=== PATIENT | female | born 1980 | race Caucasian/White ===

== ENCOUNTER 2024-11-25 15:07 | Emergency (ER) | payer OTHER, SELFPAY ==
[2024-11-25 15:15] VITALS: BP 184/59; PULSE 35; TEMP 36.5; O2SAT 99; BMI 41.5
--- NOTE | 2024-11-25 15:19 | ECG_ITS ---
"[employer] Test Date: 2024-11-25 Pat Name: Diana Kasper Department: Room: Gender: Female Import Clerk: : 1980 Requested By: Christine Valdez Order Number: [id number] Taqueria MD: Daysi Roe M.D. Measurements Intervals [place] Rate: P: 0 ND: 0 QRS: 0 QRSD: 0 T: 0 QT: 0 QTc: 0 Interpretive Statements Third-degree heart block with possible junctional bradycardia NONSPECIFIC INTRAVENTRICULAR CONDUCTION DELAY WARNING: DATA QUALITY MAY AFFECT INTERPRETATION INTERPRETATION BASED ON A DEFAULT AGE OF 40 YEARS No previous ECG available for comparison Electronically Signed On 11-25-2024 15:31:50 CDT by Daysi Roe M.D. [id number]"
--- NOTE | 2024-11-25 15:31 | ED_ITS ---
HPI - Arrhythmia/Palpitations 2 General: Chief Complaint: Arrhythmia/Palpitations Stated Complaint: passed out a couple of hour ago Time Seen by Provider: 11/25/24 15:26 History of Present Illness: 44-year-old female with history of obesi ty but no other known medical problems who presents emergency room after she had a syncopal episode. On presentation here she is now asymptomatic. Her blood pressure is elevated. Since the syncopal episode she has not had any symptoms. No chest pain. No lightheadedness. No altered mental status. No nausea or vomiting. Related Data Allergies Allergy/AdvReac Type Severity Reaction Status Date / Time No Known Allergies Allergy Verified 11/25/24 15:25 Review of Systems 2 Narrative: Constitutional symptoms: Negative except as documented in HPI. Skin symptoms: Negative except as documented in HPI. Eye symptoms: Negative except as documented in HPI. ENMT symptoms: Negative except as documented in HPI. Respiratory symptoms: Negative except as documented in HPI. Cardiovascular symptoms: Negative except as documented in HPI. Gastrointestinal symptoms: Negative except as documented in HPI. Genitourinary symptoms: Negative except as documented in HPI. Musculoskeletal symptoms: Negative except as documented in HPI. Neurologic symptoms: Negative except as documented in HPI. Psychiatric symptoms: Negative except as documented in HPI. Endocrine symptoms: Negative except as documented in HPI. Physical Exam 2 Narrative: EXAM NARRATIVE: General: Alert, no acute distress. Skin: Warm, dry. Head: Normocephalic, atraumatic. Neck: Supple, trachea midline. Eye: Extraocular movements are intact. Ears, nose, mouth and throat: mucosa moist. Cardiovascular: Regular, Normal peripheral perfusion. Respiratory: Lungs are clear to auscultation, respirations are non-labored, breath sounds are equal, Symmetrical chest wall expansion. Gastrointestinal: Soft, Nontender, Non distended Musculoskeletal: Normal ROM, no deformity. Neurological: Alert and oriented, No focal neurological deficit observed. Psychiatric: Cooperative, appropriate mood & affect. Course 2 Vital Signs: Vital signs: Vital Signs Temperature 97.7 F 11/25/24 15:15 Pulse Rate 32 L 11/25/24 16:19 Respiratory Rate 16 11/25/24 16:19 Blood Pressure 129/62 11/25/24 16:19 Pulse Oximetry 97 11/25/24 16:19 Oxygen Delivery Me thod Room Air 11/25/24 16:19 MDM - Arrhythmia/Palpitations Medical Decision Making Medical decision making: Differential diagnosis including but not limited to and based on the above HPI, review of systems and physical exam in this patient with syncope: Vasovagal, orthostatics hypotension, cardiac dysrhythmia, myocardial infarction, infection and hypotension, Orders placed to evaluate differential diagnosis based on the above differential, HPI and physical exam EKG: Patient appears to be in a normal heart block with a rate of around 34. No ST elevation this was reviewed and interpreted by myself the ER physician Consultation: I spoke with Dr. Roe. He recommends transfer. He reviewed the EKG. Since patient is asymptomatic he recommends placing pacer pads but does not feel she needs to go to the [facility] for temporary pacer at this point Lab Review: Laboratory results were reviewed and interpreted by myself the emergency room physician. No leukocytosis. No anemia. No renal failure. TSH is normal. proBNP is 156. Magnesium is normal. Initial troponin is negative. I reviewed the patient's medical record. Reexamination: Patient remained stable. No increased work of breathing. No altered mental status. No focal motor deficits. Patient has remained asymptomatic and bradycardic with blood pressures ranging from 130-180 systolic. Consultation: Spoke with transfer center at [facility] and the patient was accepted by Dr. Ruelas ER to ER at [facility] in [place] Assessment and plan: Complete heart block -I discussed the patient with the accepting physician on-call. - Discussed findings and plan with patient. Answered any questions. - All laboratory values were reviewed and interpreted personally by myself, the ER physician - All imaging was reviewed and interpreted personally by myself, the ER physician. - Evaluation and treatment of this problem were appropriate in the emergency setting Lab Data 11/25/24 15:25 11/25/24 15:25 Laboratory Results WBC 8.94 10^3/uL (3.29-11.43) 11/25/24 15:25 RBC 4.85 10^6/uL (3.85-5.65) 11/25/24 15:25 Hgb 13.50 g/dL (11.27-16.99) 11/25/24 15:25 Hct 42.2 % (36-47) 11/25/24 15:25 MCV 87.0 fl (85-98) 11/25/24 15:25 MCH 27.8 pg (27-33) 11/25/24 15:25 MCHC 32.0 g/dL (30-55) 11/25/24 15:25 RDW 13.6 % (12.1-15.1) 11/25/24 15:25 Plt Count 324 10^3/cmm (157-399) 11/25/24 15:25 MPV 11.2 fL (7.4-10.4) H 11/25/24 15:25 Neut % (Auto) 70.6 % 11/25/24 15:25 Lymph % (Auto) 20.0 % 11/25/24 15:25 Dawes % (Auto) 7.5 % 11/25/24 15:25 Eos % (Auto) 1.1 % 11/25/24 15: Baso % (Auto) 0.6 % 11/25/24 15: Neut # (Auto) 6.31 10^3/uL (1.8-7.7) 11/25/24 15:25 Lymph # (Auto) 1.8 10^3/uL (0.8-4.8) 11/25/24 15:25 Dawes # (Auto) 0.7 10^3/uL (0.2-0.9) 11/25/24 15:25 Eos # (Auto) 0.1 10^3/uL (0.0-0.8) 11/25/24 15:25 Baso # (Auto) 0.1 10^3/uL (0.0-0.1) 11/25/24 15:25 Nucleated RBC % (auto) 0 % 11/25/24 15:25 Nucleated RBCs # 0.0 /100WBC 11/25/24 15:25 Sodium 140 mmol/L (136-145) 11/25/24 15:25 Potassium 4.3 mmol/L (3.5-5.1) 11/25/24 15:25 Chloride 104 mmol/L (98-107) 11/25/24 15:25 Carbon Dioxide 19 mmol/L (22-29) L 11/25/24 15:25 Anion Gap 21.3 (5-19) H 11/25/24 15:25 BUN 22 mg/dL (6-20) H 11/25/24 15:25 Creatinine 0.8 mg/dL (0.5-0.9) 11/25/24 15:25 GFR Calculation 77.6 mL/min (90-130) L 11/25/24 15:25 Glucose 133 mg/dL (65-115) H 11/25/24 15:25 Calculated Osmolality 295 mOsm/kg (285-295) 11/25/24 15:25 Lactic Acid 1.3 mmol/L (0.5-2.2) 11/25/24 15:25 Calcium 9.8 mg/dL (8.5-10.5) 11/25/24 15:25 Magnesium 2.1 mg/dL (1.7-2.3) 11/25/24 15:25 Total Bilirubin 0.3 mg/dL (0.15-1.2) 11/25/24 15:25 AST 24 U/L (0-32) 11/25/24 15:25 ALT 22 U/L (0-33) 11/25/24 15:25 Alkaline Phosphatase 86 U/L (35-105) 11/25/24 15:25 Troponin T Baseline < 6 ng/L (0-10) 11/25/24 15:25 NT-Pro-B Natriuret Pep 153 pg/mL (0-125) H 11/25/24 15:25 Total Protein 7.6 g/dL (6.6-8.7) 11/25/24 15:25 Albumin 4.5 g/dL (3.5-5.2) 11/25/24 15:25 Globulin 3.1 g/dL (1.3-4.6) 11/25/24 15:25 TSH 0.62 uIU/mL (0.27-4.20) 11/25/24 15:25 No radiology studies performed this visit Discharge Plan Discharge Patient Disposition: Xfer Short-Term Hosp Clinical Impression: Complete heart block, Syncope, Hypertension Condition: Stable Discharge Diet: Usual diet Discharge Activity: Limit activity as instructed Patient Instructions: Splint Care (ED) Activity Restrictions/Additional Instructions: Thank you for choosing [facility] for your healthcare needs today. You have been screened and evaluated and felt safe for discharge. Health conditions do change or evolve sometimes and as such it is important that you follow up with your Primary Doctor to be re checked, 3-5 days is a general good time frame for follow up. You are always welcome to return to the ED for re assessment if your symptoms are worsening or you have new concerns Print Language: New Zealander Coding Level of Care Code ED Pharmaceutical Service Representative for Lorenza Law
[2024-11-25 15:38] LABS: Hematocrit 42.2 % (36-47); Hemoglobin 13.50 g/dL (11.27-16.99); Mean Corpuscular HGB Conc 32.0 g/dL (30-55); Mean Corpuscular Hemoglobin 27.8 pg (27-33); Mean Corpuscular Volume 87.0 fl (85-98); Nucleated Red Blood Cells % 0 %; Platelet Count 324 10^3/cmm (157-399); Red Blood Count 4.85 10^6/uL (3.85-5.65); White Blood Count 8.94 10^3/uL (3.29-11.43)
[2024-11-25 15:57] LABS: Lactic Sepsis W/Reflex 1.3 mmol/L (0.5-2.2)
[2024-11-25 16:00] LABS: Troponin(5th) Baseline < 6 ng/L (0-10)
[2024-11-25 16:07] LABS: Alanine Aminotransferase 22 U/L (0-33); Albumin Level 4.5 g/dL (3.5-5.2); Alkaline Phosphatase 86 U/L (35-105); Anion Gap 21.3 (5-19); Aspartate Amino Transferase 24 U/L (0-32); Blood Urea Nitrogen 22 mg/dL (6-20); Calcium 9.8 mg/dL (8.5-10.5); Carbon Dioxide 19 mmol/L (22-29); Chloride 104 mmol/L (98-107); Creatinine Clr Calc Pharmacy 111.5348; Globulin 3.1 g/dL (1.3-4.6); Glucose 133 mg/dL (65-115); Magnesium 2.1 mg/dL (1.7-2.3); NT Pro B Type Natriuretic Pept 153 pg/mL (0-125); Osmolality Calculated 295 mOsm/kg (285-295); Potassium 4.3 mmol/L (3.5-5.1); Sodium 140 mmol/L (136-145); Thyroid Stimulating Hormone 0.62 uIU/mL (0.27-4.20); Total Protein 7.6 g/dL (6.6-8.7)
[2024-11-25 16:15] LABS: Slide Review Slide Review Perform
[2024-11-25 16:19] VITALS: BP 129/62; PULSE 32; RESP 16; O2SAT 97
--- NOTE | 2024-11-25 17:16 | ECG_ITS ---
[facility] Date: 2024-11-25 Pat Name: Diana Kasper Department: Room: Gender: Female Satellite Tv Technician: : 1980 Requested By: Christine Valdez Order Number: [id number] Meng MD: Daysi Roe M.D. Measurements Intervals [place] Rate: 32 P: 0 CA: 0 QRS: -40 QRSD: 145 T: -59 QT: 596 QTc: 441 Interpretive Statements IDIOVENTRICULAR RHYTHM Third-degree heart block PROLONGED QT INTERVAL CRITICAL TEST RESULT INTERPRETATION BASED ON A DEFAULT AGE OF 40 YEARS Compared to ECG 11/25/2024 15:19:44 Idioventricular rhythm now present Prolonged QT interval now present Intraventricular conduction delay no longer present Electronically Signed On 11-25-2024 19:36:20 CDT by Daysi Roe M.D. [id number]
[2024-11-25 17:18] VITALS: BP 129/52; PULSE 30; O2SAT 98
[2024-11-25 17:32] LABS: Troponin 5 2HR 9.68 ng/L (0-10); Troponin 5 2HR Delta 3.68001 ABS# (0-10)
--- OUTSIDE RECORDS SUMMARY | 2024-11-25 17:54 | XMS_ITS | Encounter Summary ---
Author Organization [facility] Address [address] [place] [address] Care Team Providers Care Telecommunications Field Technician Name Role Phone Paulino Fofana MD Primary Care Provider [phone] Encounter Details Date Type Department Care Team (Latest Contact Info) Description 04/11/2002 Outpatient Historical [facility] Medicine[address] [phone] Jimmy Sheldon MD [address] [address] CARPAL TUNNEL SYNDROME (Primary Dx) Social History Tobacco Use Types Packs/Day Years Used Date Smoking Tobacco: Never Assessed Comments Unknown Sex and Gender Information Value Date Recorded Sex Assigned at Not on file Legal Sex Female 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 Gender Identity Not on file Sexual Orientation Not on file documented as of this encounter Plan of Treatment Not on file documented as of this encounter Visit Diagnoses Diagnosis Carpal tunnel syndrome- Primary documented in this encounter Additional Health Concerns Infection Onset Date Last Indicated Resolved Time R/O COVID-19 10/16/2019 10/16/2019 10/22/2020 9:18 PM CDT documented as of this encounter Care Teams Telecommunications Field Technician Relationship Specialty Start Date End Date Paulino Fofana MD [address] [phone] PCP - General Family Practice 08/07/18 documented as of this encounter
--- OUTSIDE RECORDS SUMMARY | 2024-11-25 17:54 | XMS_ITS | Encounter Summary ---
Author Organization [facility] Address [address] [place] [address] Care Team Providers Care Education Specialist Name Role Phone Paulino Fofana MD Primary Care Provider [phone] Encounter Details Date Type Department Care Team (Latest Contact Info) Description 07/30/2000 Outpatient Historical [facility] Medicine[address] [phone] Jimmy Sheldon MD [address] [address] Dysthymic disorder (Primary Dx) Social History Tobacco Use Types Packs/Day Years Used Date Smoking Tobacco: Never Assessed Comments Unknown Sex and Gender Information Value Date Recorded Sex Assigned at Not on file 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 Gender Identity Not on file Sexual Orientation Not on file documented as of this encounter Plan of Treatment Not on file documented as of this encounter Visit Diagnoses Diagnosis Dysthymic disorder- Primary documented in this encounter Additional Health Concerns Infection Onset Date Last Indicated Resolved Time R/O COVID-19 10/16/2019 10/16/2019 10/22/2020 9:18 PM CDT documented as of this encounter Care Teams Education Specialist Relationship Specialty Start Date End Date Paulino Fofana MD [address], [place] [id number] PCP - General Family Practice 08/07/18 documented as of this encounter
--- OUTSIDE RECORDS SUMMARY | 2024-11-25 17:54 | XMS_ITS | Encounter Summary ---
Author Organization [facility] Address [address] [place] [address] Care Team Providers Care Adhesive Bonding Machine Operator Name Role Phone Paulino Fofana MD Primary Care Provider [phone] Encounter Details Date Type Department Care Team (Latest Contact Info) Description 04/20/2000 Outpatient Historical [facility] Medicine[address] [phone] Jimmy Sheldon MD [address] [address] Dysthymic disorder (Primary Dx) Social History Tobacco Use Types Packs/Day Years Used Date Smoking Tobacco: Never Assessed Comments Unknown Sex and Gender Information Value Date Recorded Sex Assigned at Not on file Legal 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 Gender Identity Not on file Sexual Orientation Not on file documented as of this encounter Plan of Treatment Not on file documented as of this encounter Visit Diagnoses Diagnosis Dysthymic disorder- Primary documented in this encounter Additional Health Concerns Infection Onset Date Last Indicated Resolved Time R/O COVID-19 10/16/2019 10/16/2019 10/22/2020 9:18 PM CDT documented as of this encounter Care Teams Adhesive Bonding Machine Operator Relationship Specialty Start Date End Date Paulino Fofana MD [address] [phone] PCP - General Family Practice 08/07/18 documented as of this encounter
--- OUTSIDE RECORDS SUMMARY | 2024-11-25 17:54 | XMS_ITS | Encounter Summary ---
Author Organization [facility] Address [address] [place] [address] Care Team Providers Care Toll Line Mechanic Name Role Phone Paulino Fofana MD Primary Care Provider Encounter Details Date Type Department Care Team (Latest Contact Info) Description 06/06/2002 Outpatient Historical [facility] Medicine[address] [phone] Jimmy Sheldon MD [address] [address] JOINT PAIN-FOREARM (Primary Dx); GANGLION NOS Social History Tobacco Use Types Packs/Day Years Used Date Smoking Tobacco: Never Assessed Comments Unknown Sex and Gender Information Value Date Recorded Sex Assigned at Not on file 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 Gender Identity Not on file Sexual Orientation Not on file documented as of this encounter Plan of Treatment Not on file documented as of this encounter Visit Diagnoses Diagnosis Pain in joint, forearm- Primary Ganglion, unspecified documented in this encounter Additional Health Concerns Infection Onset Date Last Indicated Resolved Time R/O COVID-19 10/16/2019 10/16/2019 10/22/2020 9:18 PM CDT documented as of this encounter Care Teams Toll Line Mechanic Relationship Specialty Start Date End Date Paulino Fofana MD [address], [place] [address] PCP - General Family Practice 08/07/18 documented as of this encounter
--- OUTSIDE RECORDS SUMMARY | 2024-11-25 17:54 | XMS_ITS | Encounter Summary ---
Author Organization [facility] Address [address] [place] [address] Care Team Providers Care Cripple Cutter Name Role Phone Paulino Fofana MD Primary Care Provider [phone] Encounter Details Date Type Department Care Team (Latest Contact Info) Description 12/22/1999 Outpatient Historical [facility] PANTRY STEWARD/STEWARDESS Dao Ocampo MD [address] [place] [address] Supervision of other normal (Primary Dx) Social History Tobacco Use Types Packs/Day Years Used Date Smoking Tobacco: Never Assessed Comments Unknown Sex and Gender Information Value Date Recorded Sex Assigned at Not on file 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 Gender Identity Not on file Sexual Orientation Not on file documented as of this encounter Plan of Treatment Not on file documented as of this encounter Visit Diagnoses Diagnosis Supervision of other normal - Primary documented in this encounter Additional Health Concerns Infection Onset Date Last Indicated Resolved Time R/O COVID-19 10/16/2019 10/16/2019 10/22/2020 9:18 PM CDT documented as of this encounter Care Teams Cripple Cutter Relationship Specialty Start Date End Date Paulino Fofana MD [address] [place] [address] PCP - General Family Practice 08/07/18 documented as of this encounter
--- OUTSIDE RECORDS SUMMARY | 2024-11-25 17:54 | XMS_ITS | Encounter Summary ---
Author Organization [facility] Address [address] Gates: [place] [address] Care Team Providers Care Unpaid Intern Name Role Phone Paulino Fofana MD Primary Care Provider [phone] Encounter Details Date Type Department Care Team (Late st Contact Info) Description 09/03/2001 Outpatient Historical [facility]ia [facility], [facility] [address], 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
--- OUTSIDE RECORDS SUMMARY | 2024-11-25 17:54 | XMS_ITS | Encounter Summary ---
Author Organization [facility] Address [address] [place] [address] Care Team Providers Care Process Improvement Specialist Name Role Phone Paulino Fofana MD Primary Care Provider [phone] Encounter Details Date Type Department Care Team (Latest Contact Info) Description 06/15/2000 Outpatient Historical [facility] Medicine[address] [phone] Jimmy Sheldon MD [address] [address] Routine medical exam (Primary Dx) Social History Tobacco Use Types Packs/Day Years Used Date Smoking Tobacco: Never Assessed Comments Unknown Sex and Gender Information Value Date Recorded Sex Assigned at Not on file Legal 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 Gender Identity Not on file Sexual Orientation Not on file documented as of this encounter Plan of Treatment Not on file documented as of this encounter Visit Diagnoses Diagnosis Routine medical exam- Primary Routine general medical examination at a health care facility documented in this encounter Additional Health Concerns Infection Onset Date Last Indicated Resolved Time R/O COVID-19 10/16/2019 10/16/2019 10/22/2020 9:18 PM CDT documented as of this encounter Care Teams Process Improvement Specialist Relationship Specialty Start Date End Date Paulino Fofana MD [address], [place] [address] PCP - General Family Practice 08/07/18 documented as of this encounter
--- OUTSIDE RECORDS SUMMARY | 2024-11-25 17:54 | XMS_ITS | Encounter Summary ---
Author Organization [facility] Address [address] [place] [address] Care Team Providers Care Record Changer Tester Name Role Phone Paulino Fofana MD Primary Care Provider [phone] Encounter Details Date Type Department Care Team (Latest Contact Info) Description 06/12/2001 Outpatient [facility] Medicine[address] [phone] Jimmy Sheldon MD [address] [address] Gynecologic examination (Primary Dx); PRESCRIP-ORAL CONTRACEPT Social History Tobacco Use Types Packs/Day Years Used Date Smoking Tobacco: Never Assessed Comments Unknown Sex and Gender Information Value Date Recorded Sex Assigned at Not on file Legal Sex Female 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 Gender Identity Not on file Sexual Orientation Not on file documented as of this encounter Plan of Treatment Not on file documented as of this encounter Visit Diagnoses Diagnosis Gynecologic examination- Primary Gynecological examination General counseling for prescription of oral contraceptives documented in this encounter Additional Health Concerns Infection Onset Date Last Indicated Resolved Time R/O COVID-19 10/16/2019 10/16/2019 10/22/2020 9:18 PM CDT documented as of this encounter Care Teams Record Changer Tester Relationship Specialty Start Date End Date Paulino Fofana MD [address] [place] [address] PCP - General Family Practice 08/07/18 documented as of this encounter
--- OUTSIDE RECORDS SUMMARY | 2024-11-25 17:54 | XMS_ITS | Encounter Summary ---
Author Organization [facility] Address [address] [place] [address] Care Team Providers Care Form Press Operator Name Role Phone Paulino Fofana MD Primary Care Provider [phone] Encounter Details Date Type Department Care Team (Latest Contact Info) Description 05/16/2000 Outpatient Historical [facility] Medicine- [address] [phone] Jimmy Sheldon MD [address] [address] Routine medical exam (Primary Dx); Need for prophylactic vaccination and inoculation against other specified disease; Tuberculosis contact; Need for prophylactic vaccination with tetanus toxoid alone Social History Tobacco Use Types Packs/Day Years Used Date Smoking Tobacco: Never Assessed Comments Unknown Sex and Gender Information Value Date Recorded Sex Assigned at Not on file 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 Gender Identity Not on file Sexual Orientation Not on file documented as of this encounter Plan of Treatment Not on file documented as of this encounter Visit Diagnoses Diagnosis Routine medical exam- Primary Routine general medical examination at a health care facility Need for prophylactic vaccination and inoculation against other specified disease Tuberculosis contact Contact with or exposure to tuberculosis Need for prophylactic vaccination with tetanus toxoid alone documented in this encounter Additional Health Concerns Infection Onset Date Last Indicated Resolved Time R/O COVID-19 10/16/2019 10/16/2019 10/22/2020 9:18 PM CDT documented as of this encounter Care Teams Form Press Operator Relationship Specialty Start Date End Date Paulino Fofana MD [address] [place] [address] PCP - General Family Practice 08/07/18 documented as of this encounter
--- OUTSIDE RECORDS SUMMARY | 2024-11-25 17:54 | XMS_ITS | Encounter Summary ---
Author Organization [facility] Address [address] [place] [address] Care Team Providers Care Hooker Operator Name Role Phone Paulino Fofana MD Primary Care Provider [phone] Encounter Details Date Type Department Care Team (Latest Contact Info) Description 03/08/2000 Outpatient Historical [facility] AUDIO PRODUCTION ENGINEER Dao Ocampo MD [address] [place] [address] Gynecologic examination (Primary Dx) Social History Tobacco Use Types Packs/Day Years Used Date Smoking Tobacco: Never Assessed Comments Unknown Sex and Gender Information Value Date Recorded Sex Assigned at Not on file Legal 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 Female 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 Gender Identity Not on file Sexual Orientation Not on file documented as of this encounter Plan of Treatment Not on file documented as of this encounter Visit Diagnoses Diagnosis Gynecologic examination- Primary Gynecological examination documented in this encounter Additional Health Concerns Infection Onset Date Last Indicated Resolved Time R/O COVID-19 10/16/2019 10/16/2019 10/22/2020 9:18 PM CDT documented as of this encounter Care Teams Hooker Operator Relationship Specialty Start Date End Date Paulino Fofana MD [address] [place] [address] PCP - General Family Practice 08/07/18 documented as of this encounter
--- OUTSIDE RECORDS SUMMARY | 2024-11-25 17:54 | XMS_ITS | Encounter Summary ---
Author Organization [facility] Address [address] [place] [address] Care Team Providers Care Office Manager Receptionist Name Role Phone Paulino Fofana MD Primary Care Provider [phone] Encounter Details Date Type Department Care Team (Latest Contact Info) Description 06/22/2000 Outpatient Historical [facility] Medicine[address] [phone] Jimmy Sheldon MD [address] [address] Dysthymic disorder (Primary Dx) Social History Tobacco Use Types Packs/Day Years Used Date Smoking Tobacco: Never Assessed Comments Unknown Sex and Gender Information Value Date Recorded Sex Assigned at Not on file Legal Sex Female 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 ASSOCIATE ENGINEER Gender Identity Not on file Sexual Orientation Not on file documented as of this encounter Plan of Treatment Not on file documented as of this encounter Visit Diagnoses Diagnosis Dysthymic disorder- Primary documented in this encounter Additional Health Concerns Infection Onset Date Last Indicated Resolved Time R/O COVID-19 10/16/2019 10/16/2019 10/22/2020 9:18 PM CDT documented as of this encounter Care Teams Office Manager Receptionist Relationship Specialty Start Date End Date Paulino Fofana MD [address] [phone] PCP - General Family Practice 08/07/18 documented as of this encounter
--- OUTSIDE RECORDS SUMMARY | 2024-11-25 17:54 | XMS_ITS | Encounter Summary ---
Author Organization [facility] Address [address] [place] [address] Care Team Providers Care Tool Straightener Name Role Phone Paulino Fofana MD Primary Care Provider [phone] Encounter Details Date Type Department Care Team (Latest Contact Info) Description 04/06/2000 Outpatient Historical [facility] Medicine[address] [phone] Jimmy Sheldon MD [address] [address] Spasm of muscle (Primary Dx); Dysthymic disorder Social History Tobacco Use Types Packs/Day Years Used Date Smoking Tobacco: Never Assessed Comments Unknown Sex and Gender Information Value Date Recorded Sex Assigned at Not on file Legal Sex Female 5:14 AM SENIOR MANAGER ASSET PROTECTION Gender Identity Not on file Sexual Orientation Not on file documented as of this encounter Plan of Treatment Not on file documented as of this encounter Visit Diagnoses Diagnosis Spasm of muscle- Primary Dysthymic disorder documented in this encounter Additional Health Concerns Infection Onset Date Last Indicated Resolved Time R/O COVID-19 10/16/2019 10/16/2019 10/22/2020 9:18 PM CDT documented as of this encounter Care Teams Tool Straightener Relationship Specialty Start Date End Date Paulino Fofana MD [address], [place] [address] PCP - General Family Practice 08/07/18 documented as of this encounter
--- OUTSIDE RECORDS SUMMARY | 2024-11-25 17:54 | XMS_ITS | Encounter Summary ---
Author Organization [facility] Address [address] [place] [address] Care Team Providers Care Visiting Teacher Name Role Phone Paulino Fofana MD Primary Care Provider [phone] Encounter Details Date Type Department Care Team (Latest Contact Info) Description 02/13/2001 Outpatient Historical [facility] Medicine[address] [address] Jimmy Sheldon MD [address] [address] PRESCRIP-ORAL CONTRACEPT (Primary Dx); NEUROTIC DEPRESSION Social History Tobacco Use Types Packs/Day Years Used Date Smoking Tobacco: Never Assessed Comments Unknown Sex and Gender Information Value Date Recorded Sex Assigned at Not on file Legal Sex Female 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 Gender Identity Not on file Sexual Orientation Not on file documented as of this encounter Plan of Treatment Not on file documented as of this encounter Visit Diagnoses Diagnosis General counseling for prescription of oral contraceptives- Primary Dysthymic disorder documented in this encounter Additional Health Concerns Infection Onset Date Last Indicated Resolved Time R/O COVID-19 10/16/2019 10/16/2019 10/22/2020 9:18 PM CDT documented as of this encounter Care Teams Visiting Teacher Relationship Specialty Start Date End Date Paulino Fofana MD [address] [place] [phone] PCP - General Family Practice 08/07/18 documented as of this encounter
--- OUTSIDE RECORDS SUMMARY | 2024-11-25 17:54 | XMS_ITS | Encounter Summary ---
Author Organization [facility] Address [address] [place] [address] Care Team Providers Care Relief Map Modeler Name Role Phone Paulino Fofana MD Primary Care Provider [phone] Encounter Details Date Type Department Care Team (Latest Contact Info) Description 09/27/2001 Outpatient Historical [facility] Medicine[address] [phone] Jimmy Sheldon MD [address] [address] VIRAL WARTS NOS (Primary Dx) Social History Tobacco Use Types Packs/Day Years Used Date Smoking Tobacco: Never Assessed Comments Unknown Sex and Gender Information Value Date Recorded Sex Assigned at Not on file Legal Sex Female 5:14 AM OYSTER WASHER Gender Identity Not on file Sexual Orientation Not on file documented as of this encounter Plan of Treatment Not on file documented as of this encounter Visit Diagnoses Diagnosis Viral warts, unspecified- Primary documented in this encounter Additional Health Concerns Infection Onset Date Last Indicated Resolved Time R/O COVID-19 10/16/2019 10/16/2019 10/22/2020 9:18 PM CDT documented as of this encounter Care Teams Relief Map Modeler Relationship Specialty Start Date End Date Paulino Fofana MD [address] [phone] PCP - General Family Practice 08/07/18 documented as of this encounter
--- OUTSIDE RECORDS SUMMARY | 2024-11-25 17:54 | XMS_ITS | Encounter Summary ---
Author Organization [facility] Address [address] [place] [address] Care Team Providers Care Drill Presser Name Role Phone Paulino Fofana MD Primary Care Provider [phone] Encounter Details Date Type Department Care Team (Latest Contact Info) Description 08/05/2001 Outpatient Historical [facility] [address] [phone] Jimmy Sheldon MD [address] [address] TORTICOLLIS NOS (Primary Dx); NONSUPP OTITIS MEDIA NOS; ACUTE PHARYNGITIS Social History Tobacco Use Types Packs/Day Years Used Date Smoking Tobacco: Never Assessed Comments Unknown Sex and Gender Information Value Date Recorded Sex Assigned at Not on file Legal Sex Female 5:14 AM SENIOR SHAREPOINT ARCHITECT Gender Identity Not on file Sexual Orientation Not on file documented as of this encounter Plan of Treatment Not on file documented as of this encounter Visit Diagnoses Diagnosis Torticollis, unspecified- Primary Nonsuppurative otitis media, not specified as acute or chronic Acute pharyngitis documented in this encounter Additional Health Concerns Infection Onset Date Last Indicated Resolved Time R/O COVID-19 10/16/2019 10/16/2019 10/22/2020 9:18 PM CDT documented as of this encounter Care Teams Drill Presser Relationship Specialty Start Date End Date Paulino Fofana MD [address] [address] PCP - General Family Practice 08/07/18 documented as of this encounter
--- OUTSIDE RECORDS SUMMARY | 2024-11-25 17:54 | XMS_ITS | Encounter Summary ---
Author Organization [facility] Address [address] [place] [address] Care Team Providers Care Package Dye Stand Loader Name Role Phone Paulino Fofana MD Primary Care Provider [phone] Encounter Details Date Type Department Care Team (Latest Contact Info) Description 05/16/2002 Outpatient Historical [facility] Medicine[address] [phone] Jimmy Sheldon MD [address] [address] CARPAL TUNNEL SYNDROME (Primary Dx); ENTHESOPATHY, SITE NOS; GANGLION NOS Social History Tobacco Use Types Packs/Day Years Used Date Smoking Tobacco: Never Assessed Comments Unknown Sex and Gender Information Value Date Recorded Sex Assigned at Not on file Legal Sex Female 5:14 AM OPERATIONS RESEARCH DIRECTOR Gender Identity Not on file Sexual Orientation Not on file documented as of this encounter Plan of Treatment Not on file documented as of this encounter Visit Diagnoses Diagnosis Carpal tunnel syndrome- Primary Enthesopathy of unspecified site Ganglion, unspecified documented in this encounter Additional Health Concerns Infection Onset Date Last Indicated Resolved Time R/O COVID-19 10/16/2019 10/16/2019 10/22/2020 9:18 PM CDT documented as of this encounter Care Teams Package Dye Stand Loader Relationship Specialty Start Date End Date Paulino Fofana MD [address] [place] [phone] PCP - General Family Practice 08/07/18 documented as of this encounter
--- OUTSIDE RECORDS SUMMARY | 2024-11-25 17:54 | XMS_ITS | Encounter Summary ---
Author Organization [facility] Address [address] [facility] [address]: [place] [address] Care Team Providers Care Finisher Denture Name Role Phone Paulino Fofana MD Primary Care Provider [phone] Encounter Details Date Type Department Care Team (Late st Contact Info) Description 06/13/2001 [facility], 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
--- OUTSIDE RECORDS SUMMARY | 2024-11-25 17:54 | XMS_ITS | Encounter Summary ---
Author Organization [facility] Address [address] [place] [address] Care Team Providers Care Police [employer] Program Coordinator Name Role Phone Paulino Fofana MD Primary Care Provider [phone] Encounter Details Date Type Department Care Team (Latest Contact Info) Description 09/02/2001 Outpatient Historical [facility] Medicine[address] [phone] Jimmy Sheldon MD [address] [address] Abn Pap Smear-Cervix (Primary Dx) Social History Tobacco Use Types Packs/Day Years Used Date Smoking Tobacco: Never Assessed Comments Unknown Sex and Gender Information Value Date Recorded Sex Assigned at Not on file Legal Sex Female 5:14 AM FLASHER ADJUSTER Gender Identity Not on file Sexual Orientation Not on file documented as of this encounter Plan of Treatment Not on file documented as of this encounter Visit Diagnoses Diagnosis Abn Pap Smear-Cervix- Primary Abnormal Papanicolaou smear of cervix and cervical HPV documented in this encounter Additional Health Concerns Infection Onset Date Last Indicated Resolved Time R/O COVID-19 10/16/2019 10/16/2019 10/22/2020 9:18 PM CDT documented as of this encounter Care Teams Police [employer] Program Coordinator Relationship Specialty Start Date End Date Paulino Fofana MD [address] [place] [phone] PCP - General Family Practice 08/07/18 documented as of this encounter
--- OUTSIDE RECORDS SUMMARY | 2024-11-25 17:54 | XMS_ITS | Encounter Summary ---
Author Organization [facility] Address [address] [facility] Attn: [place] [address] Care Team Providers Care Manager Discovery Name Role Phone Paulino Fofana MD Primary Care Provider [phone] Encounter Details Date Type Department Care Team (Late st Contact Info) Description 03/09/2000 Outpatient Historical Dao Ocampo MD [address] [place] [address] Social History Tobacco Use Types Packs/Day Years Used Date Smoking Tobacco: Never Assessed Comments Unknown Sex and Gender Information Value Date Recorded Sex Assigned at Not on file Legal Sex Female 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
--- OUTSIDE RECORDS SUMMARY | 2024-11-25 17:55 | XMS_ITS | Encounter Summary ---
Author Organization [facility] Address [address] [place] [address] Care Team Providers Care Table Tender Name Role Phone Paulino Fofana MD Primary Care Provider [phone] Encounter Details Date Type Department Care Team (Latest Contact Info) Description 10/13/1999 Outpatient Historical [facility] AERONAUTICAL ENGINEERING PROFESSOR Dao Ocampo MD [address] [place] [address] Supervision of other normal (Primary Dx) Social History Tobacco Use Types Packs/Day Years Used Date Smoking Tobacco: Never Assessed Comments Unknown Sex and Gender Information Value Date Recorded Sex Assigned at Not on file Legal Sex Female 5:14 AM RADIO COMMUNICATION COORDINATOR Gender Identity Not on file Sexual Orientation [...] documented as of this encounter Care Teams Table Tender Relationship Specialty Start Date End Date Paulino Fofana MD [address] [place] [address] PCP - General Family Practice 08/07/18 documented as of this encounter
--- OUTSIDE RECORDS SUMMARY | 2024-11-25 17:55 | XMS_ITS | Encounter Summary ---
Author Organization [facility] Address [address] [place] [address] Care Team Providers Care Insurance Claims Clerk Name Role Phone Paulino Fofana MD Primary Care Provider [phone] Encounter Details Date Type Department Care Team (Late st Contact Info) Description 04/18/2019 Ancillary Orders [facility] [address] [address] Paulino Fofana MD [address] [place] [address] Visit for screening mammogram Social History Tobacco Use Types Packs/Day Years Used Date Smoking Tobacco: Every Day Cigarettes 0.3 12 Smokeless Tobacco: Never Comments:hopes to stop e cig Alcohol Use Standard Drinks/Week Comments No 0 (1 standard drink = 0.6 oz pur e alcohol) Comments No Sex and Gender Information Value Date Recorded Sex Assigned at Not on file Legal Sex Female 5:14 AM CERTIFIED GREEN BUILDING ENGINEER Gender Identity Not on file Sexual Orientation Not on file 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 us Paulino Fofana MD DIAGNOSTIC IMAGING ORDERABLES F inal Result documented in this encounter Visit Diagnoses Diagnosis Visit for screening mammogram Other screening mammogram Visit for screening mammogram Other screening mammogram documented in this encounter Additional Health Concerns Infection Onset Date Last Indicated Resolved Time R/O COVID-19 10/16/2019 10/16/2019 10/22/2020 9:18 PM CDT documented as of this encounter Care Teams Insurance Claims Clerk Relationship Specialty Start Date End Date Paulino Fofana MD [address] [address] PCP - General Family Practice 08/07/18 documented as of this encounter
--- OUTSIDE RECORDS SUMMARY | 2024-11-25 17:55 | XMS_ITS | Encounter Summary ---
Author Organization [facility] Address [address] [place] [address] Care Team Providers Care Table Games Supervisor Name Role Phone Paulino Fofana MD Primary Care Provider [phone] Encounter Details Date Type Department Care Team (Latest Contact Info) Description 09/07/1999 Outpatient Historical [facility] PAPER WINDER Rosi Parrish DO [address] [place] [address] Supervision of other normal (Primary Dx) Social History Tobacco Use Types Packs/Day Years Used Date Smoking Tobacco: Never Assessed Comments Unknown Sex and Gender Information Value Date Recorded Sex Assigned at Not on file Legal Sex Female 5:14 AM ENGRAVING OPERATOR Gender Identity Not on file Sexual [...] as of this encounter Care Teams Table Games Supervisor Relationship Specialty Start Date End Date Paulino Fofana MD [address] [place] [address] PCP - General Family Practice 08/07/18 documented as of this encounter
--- OUTSIDE RECORDS SUMMARY | 2024-11-25 17:55 | XMS_ITS | Encounter Summary ---
Author Organization [facility] Address [address] [place] [address] Care Team Providers Care Fuel Retrofitting Technician Name Role Phone Paulino Fofana MD Primary Care Provider [phone] Encounter Details Date Type Department Care Team (Latest Contact Info) Description 05/31/1999 Outpatient Historical [facility] DIRECTOR COUNCIL ON AGING Rosi Parrish DO [address] [place] [address] Gynecologic examination (Primary Dx); Absence of menstruation Social History Tobacco Use Types Packs/Day Years Used Date Smoking Tobacco: Never Assessed Comments Unknown Sex and Gender Information Value Date Recorded Sex Assigned at Not on file Legal Sex Female 5:14 AM HOME HEALTH CLINICIAN Gender Identity Not on file Sexual Orientation Not on file documented as of this encounter Plan of Treatment Not on file documented as of this encounter Visit Diagnoses Diagnosis Gynecologic examination- Primary Gynecological examination Absence of menstruation documented in this encounter Additional Health Concerns Infection Onset Date Last Indicated Resolved Time R/O COVID-19 10/16/2019 10/16/2019 10/22/2020 9:18 PM CDT documented as of this encounter Care Teams Fuel Retrofitting Technician Relationship Specialty Start Date End Date Paulino Fofana MD [address] [place] [address] PCP - General Family Practice 08/07/18 documented as of this encounter
--- OUTSIDE RECORDS SUMMARY | 2024-11-25 17:55 | XMS_ITS | Encounter Summary ---
Author Organization [facility] Address [address] [place] [address] Care Team Providers Care Workforce Development Program Director Name Role Phone Paulino Fofana MD Primary Care Provider [phone] Encounter Details Date Type Department Care Team (Late st Contact Info) Description 11/25/2024 Emergency [facility] [address] [place] [phone] Social History Tobacco Use Types Packs/Day Years Used Date Smoking Tobacco: Former Cigarettes Q uit: 08/25/2020 Smokeless Tobacco: Never Comments:I quit when my wes flores was born. Alcohol Use Standard Drinks/Week Comments No 0 (1 standard drink = 0.6 oz pur e alcohol) Comments No Sex and Gender Information Value Date Recorded Sex Assigned at Not on file Legal Sex Female 5:16 AM HULL DRAFTER Gender Identity Not on file Sexual Orientation Not on file documented as of this encounter Plan of Treatment Not on file documented as of this encounter Visit Diagnoses Not on filedocumented in this encounter Care Teams Workforce Development Program Director Relationship Specialty Start Date End Date Paulino Fofana MD [address] [place] [phone] PCP - General Family Practice 08/07/18 documented as of this encounter
--- OUTSIDE RECORDS SUMMARY | 2024-11-25 17:55 | XMS_ITS | Clinical Summary ---
Author Organization [address] Address [address] [place] [address] Care Team Providers Care Registered Dental Assistant Rda Name Role Phone Paulino Fofana MD Primary Care Provider [phone] Allergies No known active allergies Medications rizatriptan ([employer] SAF[employer]Y EQUIPMENT TECHNICIAN) 10 mg Tablet, Rapid Dissolve Place 1 Tablet (10 mg) inside cheek every 2 hours as needed for Migraine. may repeat in 2 hours; max dose 30mg in 24 hours 9 Tablet 9 Active DULoxetine (CYMBALTA) 60 mg Capsule, Delayed Release(E.C.)Ind ications:Primary fibromyalgia,Fat igue, unspecified type,Situational anxiety,Depressi on, unspecified depression type Take 1 capsule by mouth twice daily 180 Capsule 1 Active estradioL (ESTRACE) 1 mg tabletIndication s:Post-menopausa l,Sleep disturbance Take 1 Tablet (1 mg) by mouth daily. Needs mammogram scheduled for additional refills. 30 Tablet 1 Active LORazepam (ATIVAN) 1 mg tabletIndication s:Situational anxiety TAKE 1 TABLET BY MOUTH THREE TIMES DAILY NEEDED FOR ANXIETY 40 Tablet 1 Active valACYclovir (VALTREX) 1 gram tablet Take 2 Tablets (2,000 mg) by mouth 2 times daily. 40 Tablet 1 1 Active hydrOXYzine pamoate (VISTARIL) 50 mg capsuleIndicatio ns:Sleep disturbance Take 1-2 Capsules (50-100 mg) by mouth daily at bedtime. For sleep. 60 Capsule 2 1 Active buPROPion HCL (WELLBUTRIN XL) 150 mg Extended Release 24 hour tabletIndication s:Depression, unspecified depression type Take 1 Tablet (150 mg) by mouth daily in the morning. 90 Tablet 1 Active Active Problems Problem Noted Date Diagnosed Date Anxiety as acute reaction to exceptional stress 02/06/2019 Sleep disturbance 05/31/2018 Fatigue 05/31/2018 Primary fibromyalgia 06/15/2010 PCOS (polycystic ovarian syndrome) 11/22/2009 Other and unspecified ovarian cyst 11/22/2009 Secondary oligomenorrhea 09/21/2009 Dysmenorrhea 09/21/2009 Depression 11/21/2007 Panic attacks 11/21/2007 Cervical cancer screening 11/21/2007 Overview (11/21/2007): Normal pap 07/13 Overweight(278.02) 11/21/2007 Immunizations Immunization Administration Dates Next Due (M-M-R II/PRIORIX)(12 MO UP) MEASLES, MUMPS AND RUBELLA VIRUS VACCINE, 0.5 ML IM/SUBCUT 05/16/2000 Dt Dtp Dtap Vaccine 05/16/2000 Hepatitis B Vaccine 06/15/2000,05/16/2000 Family History Medical History Relation Name Comments Healthy Brother Healthy Father Breast Cancer Maternal Grandmother positi ve responses -see media tab Cancer Maternal Grandmother Healthy Mother Cancer Paternal Grandfather Relation Name Status Comments Brother Alive Father Alive Maternal Grandfather Alive Maternal Grandmother Alive Mother Alive Paternal Grandfather Paternal Grandmother Alive Social History Tobacco Use Types Packs/Day Years Used Date Smoking Tobacco: Every Day Cigarettes 0.3 12 Smokeless Tobacco: Never Tobacco Cessation:Ready to Q uit: No; Counseling Given: Yes Comments:hopes to stop e cig Alcohol Use Standard Drinks/Week Comments No 0 (1 standard drink = 0.6 oz pur e alcohol) Comments No Sex and Gender Information Value Date Recorded Sex Assigned at Not on file Legal Sex Female 5:14 AM TISSUE REWINDER Gender Identity Not on file Sexual Orientation Not on file 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 Not on file Not on file Last Filed Vital Signs Vital Sign Reading Time Taken Comments Blood Pressure 130/78 10/31/2019 4:29 PM CDT Pulse 83 10/31/2019 4:29 PM CDT Temperature 36.6 C (97.8 F) 10/31/2019 4:29 PM CDT Respiratory Rate 18 10/31/2019 4:29 PM CDT Oxygen Saturation 98% 10/31/2019 4:29 PM CDT Inhaled Oxygen Concentration - - Weight 101.7 kg (224 lb 3.2 oz) 10/31/2019 4:29 PM CDT Height 165.1 cm (5' 5 ) 02/06/2019 8:41 AM TISSUE REWINDER Body Mass Index 37.31 02/06/2019 8:41 AM TISSUE REWINDER Plan of Treatment Health Maintenance Due Date Last Done Comments HEPATITIS B VACCINES (1 of 3 - 19+ 3-dose series) 06/15/1998 06/15/2000, 05/16/2000 HPV VACCINES (1 - 3-dose SCD M series) 06/15/2006 PAP SMEAR 06/15/2009 03/22/2006 DTAP/TDAP/TD VACCINES (2 - Tdap) 05/16/2010 05/17/19 01 CERVICAL CANCER SCREENING 03/22/2011 HPV/Cotest (21-29) 03/22/2011 03/22/2006 HPV/Cotest (30-65) 03/22/2011 03/22/2006 BREAST CANCER SCREENING 04/17/2020 04/18/2019 Preventative Visit- Commercial 02/06/2024 1 02/20/2021, 01/27/2021, 09/21/2009, Additional history exists COLORECTAL SCREENING 06/15/2024 Colorectal Cancer Screening 06/15/2024 FIT-DNA Q 3 years 06/15/2024 FIT/FOBT Q 1 year 06/15/2024 Flex Sig/CT Colonography Q 5 years 06/15/2024 INFLUENZA VACCINE (#1) 2024 Procedures Procedure Name Priority Date/Time Associated Diagnosis Comments MAMMO 3D GISELE SCREEN BILAT W OR WO CAD Routine 04/18/2019 10:05 AM CDT Visit for screening mammogram CERV/VAG CYTOPATH, THIN PREP IMAGR RFLX HPV Routine 03/22/2006 from Last 3 Months or Most Recently Relevant to Health Maintenance Results * MAMMO SCRN BILAT 3D GISELE W OR WO CAD (04/18/2019 10:05 AM CDT) Anatomical Region Laterality Modality Breast Bilateral Mammography Narrative 04/20/2019 8:53 AM CDT Bilateral Digital Mammogram with CAD and 3D Tomography Reason for Exam: Screening Comparison: Compared to: 09/11/2016 MAMMO PRIOR STUDY Technique: 3D MLO and CC digital tomosynthesis images were acquired and synthesized 2D images (C view) were generated. This digital mammogram was also analyzed by the Computer Aided Detection System CAD). Breast Composition: The breasts are almost entirely fatty. There are no suspicious masses, areas of architectural distortions, or microcalcifications to suggest malignancy. No significant new findings since the prior mammogram(s). Paulino Fofana MD MAMMO ORDERABLES Final Result * CERV/VAG CYTOPATH, THIN PREP IMAGR RFLX HPV (03/22/2006) FINAL REPORT JEANNE Awan [facility] Debra SHAYYRUTHY Endocervical us Abstract Spg Provider PATHOLOGY/CYTOLOGY ORDERAB LES Final Result [facility] Debra [facility] from Last 3 Months or Most Recently Relevant to Health Maintenance Insurance [facility] [place] [id number] [employer] Care Teams Registered Dental Assistant Rda Relationship Specialty Start Date End Date Paulino Fofana MD [address] [place] [address] PCP - General Family Practice 08/07/18
--- OUTSIDE RECORDS SUMMARY | 2024-11-25 17:55 | XMS_ITS | Encounter Summary ---
Author Organization [facility] Address [address] [place] [address] Care Team Providers Care Mountain Services Manager Name Role Phone Paulino Fofana MD Primary Care Provider [phone] Encounter Details Date Type Department Care Team (Latest Contact Info) Description 06/17/1999 Outpatient Historical [facility] ANNA MARIE DECORATOR CONSULTANT Rosi Parrish DO [address] [place] [address] Supervision of other normal (Primary Dx) Social History Tobacco Use Types Packs/Day Years Used Date Smoking Tobacco: Never Assessed Comments Unknown Sex and Gender Information Value Date Recorded Sex Assigned at Not on file Legal Sex Female 5:14 AM SURGERY SCHEDULER Gender Identity Not on file Sexual Orientation [...] documented as of this encounter Care Teams Mountain Services Manager Relationship Specialty Start Date End Date Paulino Fofana MD [address] [place] [address] PCP - General Family Practice 08/07/18 documented as of this encounter
--- OUTSIDE RECORDS SUMMARY | 2024-11-25 17:55 | XMS_ITS | Encounter Summary ---
Author Organization [facility] Address [address] [place] [address] Care Team Providers Care Shipping And Receiving Operator Name Role Phone Paulino Fofana MD Primary Care Provider [phone] Encounter Details Date Type Department Care Team (Latest Contact Info) Description 11/07/1999 Outpatient Historical [facility] ANNA MARIE DRYING MACHINE OPERATOR Dao Ocampo MD [address] [place] [address] Routine follow-up (Primary Dx) Social History Tobacco Use Types Packs/Day Years Used Date Smoking Tobacco: Never Assessed Comments Unknown Sex and Gender Information Value Date Recorded Sex Assigned at Not on file Legal Sex Female 5:14 AM LEVELING MACHINE OPERATOR Gender Identity Not on file Sexual Orientation Not on file documented as of this encounter Plan of Treatment Not on file documented as of this encounter Visit Diagnoses Diagnosis Routine follow-up- Primary documented in this encounter Additional Health Concerns Infection Onset Date Last Indicated Resolved Time R/O COVID-19 10/16/2019 10/16/2019 10/22/2020 9:18 PM CDT documented as of this encounter Care Teams Shipping And Receiving Operator Relationship Specialty Start Date End Date Paulino Fofana MD [address] [place] [address] PCP - General Family Practice 08/07/18 documented as of this encounter
--- OUTSIDE RECORDS SUMMARY | 2024-11-25 17:55 | XMS_ITS | Encounter Summary ---
Author Organization [facility] Address [address] [place] [address] Care Team Providers Care Pneumatic Tester Mechanic Name Role Phone Paulino Fofana MD Primary Care Provider Encounter Details Date Type Department Care Team (Latest Contact Info) Description 10/25/1999 Outpatient Historical [facility] ANNA MARIE TITLE I PARAPROFESSIONAL Dao Ocampo MD [address] [place] [address] Supervision of other normal (Primary Dx) Social History Tobacco Use Types Packs/Day Years Used Date Smoking Tobacco: Never Assessed Comments Unknown Sex and Gender Information Value Date Recorded Sex Assigned at Not on file Legal Sex Female 5:14 AM MINCING MACHINE OPERATOR Gender Identity Not on file [...] documented as of this encounter Care Teams Pneumatic Tester Mechanic Relationship Specialty Start Date End Date Paulino Fofana MD [address] [place] [address] PCP - General Family Practice 08/07/18 documented as of this encounter
--- OUTSIDE RECORDS SUMMARY | 2024-11-25 17:55 | XMS_ITS | Encounter Summary ---
Author Organization [facility] Address [address] [place] [address] Care Team Providers Care Volunteer Manager Name Role Phone Paulino Fofana MD Primary Care Provider Encounter Details Date Type Department Care Team (Latest Contact Info) Description 07/19/1999 Outpatient Historical [facility] ANNA MARIE LICENSED STAFF MFT Rosi Parrish DO [address] [place] [address] Supervision of other normal (Primary Dx) Social History Tobacco Use Types Packs/Day Years Used Date Smoking Tobacco: Never Assessed Comments Unknown Sex and Gender Information Value Date Recorded Sex Assigned at Not on file Legal Sex Female 5:14 AM CLERICAL STOCK INSPECTOR Gender Identity Not on file Sexual [...] documented as of this encounter Care Teams Volunteer Manager Relationship Specialty Start Date End Date Paulino Fofana MD [address] [place] [address] PCP - General Family Practice 08/07/18 documented as of this encounter
--- OUTSIDE RECORDS SUMMARY | 2024-11-25 17:55 | XMS_ITS | Encounter Summary ---
Author Organization [facility] Address [address] [place] [address] Care Team Providers Care Door Liner Name Role Phone Paulino Fofana MD Primary Care Provider [phone] Encounter Details Date Type Department Care Team (Latest Contact Info) Description 08/19/1999 Outpatient Historical [facility] MCRAE SWEEP MOLDER Dao Herrera, DO [address] [place] [address] Supervision of other normal (Primary Dx) Social History Tobacco Use Types Packs/Day Years Used Date Smoking Tobacco: Never Assessed Comments Unknown Sex and Gender Information Value Date Recorded Sex Assigned at Not on file Legal Sex Female 5:14 AM MILKING SYSTEM INSTALLER Gender Identity Not on file Sexual Orientation [...] documented as of this encounter Care Teams Door Liner Relationship Specialty Start Date End Date Paulino Fofana MD [address] [place] [address] PCP - General Family Practice 08/07/18 documented as of this encounter
--- OUTSIDE RECORDS SUMMARY | 2024-11-25 17:55 | XMS_ITS | Encounter Summary ---
Author Organization [facility] Address [address] [place] [address] Care Team Providers Care Applications Specialist Name Role Phone Paulino Fofana MD Primary Care Provider [phone] Encounter Details Date Type Department Care Team (Latest Contact Info) Description 10/20/1999 Outpatient Historical [facility] ANNA MARIE GREY PERCHER Dao Ocampo MD [address] [place] [address] Supervision of other normal (Primary Dx) Social History Tobacco Use Types Packs/Day Years Used Date Smoking Tobacco: Never Assessed Comments Unknown Sex and Gender Information Value Date Recorded Sex Assigned at Not on file Legal Sex Female 5:14 AM TOOLING INSPECTOR Gender Identity Not on file Sexual [...] documented as of this encounter Care Teams Applications Specialist Relationship Specialty Start Date End Date Paulino Fofana MD [address] [place] [address] PCP - General Family Practice 08/07/18 documented as of this encounter
--- OUTSIDE RECORDS SUMMARY | 2024-11-25 17:55 | XMS_ITS | Encounter Summary ---
Author Organization [facility] Address [address] [place] [address] Care Team Providers Care Pure Pak Machine Operator Name Role Phone Paulino Fofana MD Primary Care Provider [phone] Encounter Details Date Type Department Care Team (Latest Contact Info) Description 09/24/2009 Outpatient Historical [facility] [address] [place] [address] Unspecified Symptom Associated with Female Genital Organs (Primary Dx) Social History Tobacco Use Types Packs/Day Years Used Date Smoking Tobacco: Every Day Cigarettes 1 12 Alcohol Use Standard Drinks/Week Comments No 0 (1 standard drink = 0.6 oz pur e alcohol) Comments No Sex and Gender Information Value Date Recorded Sex Assigned at Not on file Legal Sex Female 5:14 AM LIEUTENANT BALLISTICS Gender Identity Not on file Sexual Orientation Not on file documented as of this encounter Plan of Treatment Not on file documented as of this encounter Visit Diagnoses Diagnosis Unspecified symptom associated with female genital organs- Primary documented in this encounter Additional Health Concerns Infection Onset Date Last Indicated Resolved Time R/O COVID-19 10/16/2019 10/16/2019 10/22/2020 9:18 PM CDT documented as of this encounter Care Teams Pure Pak Machine Operator Relationship Specialty Start Date End Date Paulino Fofana MD [address] [place] [address] PCP - General Family Practice 08/07/18 documented as of this encounter
--- OUTSIDE RECORDS SUMMARY | 2024-11-25 17:55 | XMS_ITS | Encounter Summary ---
Author Organization [facility] Address [address] [place] [address] Care Team Providers Care Insurance Policy Issue Clerk Name Role Phone Paulino Fofana MD Primary Care Provider [phone] Encounter Details Date Type Department Care Team (Latest Contact Info) Description 09/26/1999 Outpatient Historical HIS [facility] ANNA MARIE SANFORIZER Dao Ocampo MD [address] [place] [address] Supervision of other normal (Primary Dx) Social History Tobacco Use Types Packs/Day Years Used Date Smoking Tobacco: Never Assessed Comments Unknown Sex and Gender Information Value Date Recorded Sex Assigned at Not on file Legal Sex Female 5:14 AM REVENUE FIELD AUDITOR Gender Identity Not on file Sexual Orientation [...] as of this encounter Care Teams Insurance Policy Issue Clerk Relationship Specialty Start Date End Date Paulino Fofana MD [address] [place] [address] PCP - General Family Practice 08/07/18 documented as of this encounter
--- OUTSIDE RECORDS SUMMARY | 2024-11-25 17:55 | XMS_ITS | Encounter Summary ---
Author Organization [facility] [facility] Address [address] [place] [address] Care Team Providers Care Cementing Machine Operator Name Role Phone Paulino Fofana MD Primary Care Provider [phone] Encounter Details Date Type Department Care Team (Latest Contact Info) Description 12/22/2009 Outpatient Historical HIS [facility] [address] [place] [address] Other and unspecified ovarian cyst (Primary Dx) Social History Tobacco Use Types Packs/Day Years Used Date Smoking Tobacco: Every Day Cigarettes 1 12 Alcohol Use Standard Drinks/Week Comments No 0 (1 standard drink = 0.6 oz pur e alcohol) Comments No Sex and Gender Information Value Date Recorded Sex Assigned at Not on file Legal Sex Female 5:14 AM GAS CHECK PAD MAKER Gender Identity Not on file Sexual Orientation Not on file documented as of this encounter Plan of Treatment Not on file documented as of this encounter Visit Diagnoses Diagnosis Other and unspecified ovarian cyst- Primary documented in this encounter Additional Health Concerns Infection Onset Date Last Indicated Resolved Time R/O COVID-19 10/16/2019 10/16/2019 10/22/2020 9:18 PM CDT documented as of this encounter Care Teams Cementing Machine Operator Relationship Specialty Start Date End Date Paulino Fofana MD [address] [place] [address] PCP - General Family Practice 08/07/18 documented as of this encounter
--- OUTSIDE RECORDS SUMMARY | 2024-11-25 17:55 | XMS_ITS | Encounter Summary ---
Author Organization [facility] Address [address] [place] [address] Care Team Providers Care J2Ee Engineer Name Role Phone Paulino Fofana MD Primary Care Provider [phone] Encounter Details Date Type Department Care Team (Latest Contact Info) Description 10/03/1999 Outpatient Historical [facility] ANNA MARIE BRUSH PAINTER Rosi Parrish DO [address] [place] [address] Supervision of other normal (Primary Dx) Social History Tobacco Use Types Packs/Day Years Used Date Smoking Tobacco: Never Assessed Comments Unknown Sex and Gender Information Value Date Recorded Sex Assigned at Not on file Legal Sex Female 5:14 AM TOWNSHIP SUPERVISOR Gender Identity Not on file Sexual Orientation [...] documented as of this encounter Care Teams J2Ee Engineer Relationship Specialty Start Date End Date Paulino Fofana MD [address] [place] [address] PCP - General Family Practice 08/07/18 documented as of this encounter
--- OUTSIDE RECORDS SUMMARY | 2024-11-25 17:55 | XMS_ITS | Encounter Summary ---
Author Organization [facility] Address [address] [place] [address] Care Team Providers Care Gas Or Water Meter Installer Name Role Phone Paulino Fofana MD Primary Care Provider [phone] Encounter Details Date Type Department Care Team (Latest Contact Info) Description 10/06/1999 Outpatient Historical [facility] ANNA MARIE OFFENDER EMPLOYMENT SPECIALIST Dao Ocampo MD [address] [place] [address] Supervision of other normal (Primary Dx) Social History Tobacco Use Types Packs/Day Years Used Date Smoking Tobacco: Never Assessed Comments Unknown Sex and Gender Information Value Date Recorded Sex Assigned at Not on file Legal Sex Female 5:14 AM REGISTERED ACCOUNT ADMINISTRATOR Gender Identity Not on file Sexual Orientation [...] documented as of this encounter Care Teams Gas Or Water Meter Installer Relationship Specialty Start Date End Date Paulino Fofana MD [address] [place] [address] PCP - General Family Practice 08/07/18 documented as of this encounter
--- OUTSIDE RECORDS SUMMARY | 2024-11-25 17:55 | XMS_ITS | Clinical Summary ---
Author Organization [address] Address [address] [place] [address] Care Team Providers Care Airplane And Engine Inspector Name Role Phone Paulino Fofana MD Primary Care Provider [phone] Allergies No known active allergies Medications DULoxetine (CYMBALTA) 60 mg Capsule, Delayed Release(E.C.) Take 1 Capsule (60 mg) by mouth 2 times daily. 180 Capsule 3 12/21/2021 Active buPROPion HCL (WELLBUTRIN XL) 150 mg Extended Release 24 hour tabletIndication s:Depression, unspecified depression type Take 1 Tablet (150 mg) by mouth daily in the morning. 90 Tablet 3 12/21/2021 Active valACYclovir (VALTREX) 1 gram tablet Take 1 Tablet (1,000 mg) by mouth 2 times daily as needed (cold sore). For one day prn cold sore. 40 Tablet 2 12/21/2021 Active estradioL (ESTRACE) 1 mg tablet Take 1 tablet by mouth once daily 30 Tablet 5 04/13/2022 Active LORazepam (ATIVAN) 1 mg tabletIndication s:Panic attacks TAKE 1 TABLET BY MOUTH THREE TIMES DAILY NEEDED FOR ANXIETY 40 Tablet 09/05/2022 Active Active Problems Problem Noted Date Diagnosed Date Anxiety as acute reaction to exceptional stress 02/06/2019 Fatigue 05/31/2018 Sleep disturbance 05/31/2018 Primary fibromyalgia 06/15/2010 Other and unspecified ovarian cyst 11/22/2009 PCOS (polycystic ovarian syndrome) 11/22/2009 Secondary oligomenorrhea 09/21/2009 Dysmenorrhea 09/21/2009 Cervical cancer screening 11/21/2007 Overview (06/02/2020): Normal pap 07/13 Panic attacks 11/21/2007 Overweight(278.02) 11/21/2007 Depression 11/21/2007 Encounters Date Type Department Care Team Description 11/25/2024 Emergency [facility] Emergency Department [address] [place] [address] from Last 3 Months Immunizations Immunization Administration Dates Next Due (M-M-R II/PRIORIX)(12 MO UP) MEASLES, MUMPS AND RUBELLA VIRUS VACCINE, 0.5 ML IM/SUBCUT 05/16/2000 Dt Dtp Dtap Vaccine 05/16/2000 Hepatitis B Vaccine 06/15/2000,05/16/2000 Family History Medical History Relation Name Comments Healthy Brother Kenton Healthy Daughter Yecenia Healthy Father Shaq Breast Cancer Maternal Grandmother Nhi White posit isabelle responses -see media tab Cancer Maternal Grandmother Nhi White Lympho ma Healthy Mother Katie Cancer Paternal Grandfather Sly Lymphom a Ovarian Cancer Neg Hx Uterine or Endometrial Cancer, Not Including Cervical Neg Hx Relation Name Status Comments Brother Kenton Alive Daughter Yecenia Father Shaq Alive Maternal Grandfather Alive Maternal Grandmother Nhi White Alive Mother Katie Alive Paternal Grandfather Sly Paternal Grandmother Alive Social History Tobacco Use Types Packs/Day Years Used Date Smoking Tobacco: Former Cigarettes Q uit: 08/25/2020 Smokeless Tobacco: Never Tobacco Cessation:Counseling Given: Not Answered Comments:I quit when my granddaughter was born. Alcohol Use Standard Drinks/Week Comments No 0 (1 standard drink = 0.6 oz pur e alcohol) Comments No Sex and Gender Information Value Date Recorded Sex Assigned at Not on file Legal Sex Female 5:16 AM NURSING COORDINATOR Gender Identity Not on file Sexual Orientation Not on file Last Filed Vital Signs Vital Sign Reading Time Taken Comments Blood Pressure 132/74 12/21/2021 2:56 PM NURSING COORDINATOR Pulse 84 12/21/2021 2:56 PM NURSING COORDINATOR Temperature 37.1 C (98.7 F) 12/21/2021 2:56 PM NURSING COORDINATOR Respiratory Rate 16 12/21/2021 2:56 PM NURSING COORDINATOR Oxygen Saturation 99% 12/21/2021 2:56 PM NURSING COORDINATOR Room Air Inhaled Oxygen Concentration - - Weight 118.2 kg (260 lb 9.6 oz) 12/21/2021 2:56 PM NURSING COORDINATOR Height 165.1 cm (5' 5 ) 12/21/2021 2:56 PM NURSING COORDINATOR Body Mass Index 43.37 12/21/2021 2:56 PM NURSING COORDINATOR Plan of Treatment Health Maintenance Due Date Last Done Comments HEPATITIS B VACCINES (1 of 3 - 19+ 3-dose series) 06/15/1998 06/15/2000, 05/16/2000 HPV/Cotest (21-29) 06/15/2000 HPV VACCINES (1 - 3-dose SCDM series) 06/15/2006 CERVICAL CANCER SCREENING 06/15/2009 HPV/Cotest (30-65) 06/15/2009 PAP SMEAR 06/15/2009 DTAP/TDAP/TD VACCINES (2 - Tdap) 05/16/2010 05/17/19 BREAST CANCER SCREENING 02/17/2023 02/17/19 23, 09/24/2020, 04/18/2019 Preventative Visit- Commercial 02/06/2024 1 02/20/2021, 01/27/2021, 09/21/2009 COLORECTAL SCREENING 06/15/2024 Colorectal Cancer Screening 06/15/2024 FIT-DNA Q 3 years 06/15/2024 FIT/FOBT Q 1 year 06/15/2024 Flex Sig/CT Colonography Q 5 years 06/15/2024 INFLUENZA VACCINE (#1) 2024 Procedures Procedure Name Priority Date/Time Associated Diagnosis Comments MAMMO 3D GISELE SCREEN BILAT W OR WO CAD Routine 02/17/2022 8:55 AM NURSING COORDINATOR Visit for screening mammogram from Last 3 Months or Most Recently Relevant to Health Maintenance Results * MAMMO SCRN BILAT 3D GISELE W OR WO CAD (02/17/2022 8:55 AM NURSING COORDINATOR) Anatomical Region Laterality Modality Breast Bilateral Mammography Impressions 03/01/2022 4:43 PM NURSING COORDINATOR : No mammographic evidence of malignancy. BI-RADS ASSESSMENT: 1 - Negative RECOMMENDATION: Routine annual screening mammography. Narrative 03/01/2022 4:43 PM NURSING COORDINATOR EXAM: MAMMO SCRN BILAT 3D GISELE W OR WO CAD INDICATION: Screening COMPARISON: 09/24/2020 MAMMO SCRN BILAT 3D GISELE W OR WO CAD, 04/18/2019 MAMMO SCRN BILAT 3D GISELE W OR WO CAD, and 09/11/2016 MAMMO PRIOR STUDY BREAST COMPOSITION: The breasts are almost entirely fatty. FINDINGS: RIGHT BREAST: There are no suspicious masses, calcifications, or areas of architectural distortion. LEFT BREAST: There are no suspicious masses, calcifications, or areas of architectural distortion. Paulino Fofana MD MAMMO ORDERABLES Final Result from Last 3 Months or Most Recently Relevant to Health Maintenance Insurance Member Subscriber Plan / Payer (Ef fective 2012-Present) Name:Diana Kasper Relation to Subscriber:Self Name:Diana Kasper Payer ID:Not on file Group ID:Not on file Type:MD Address: [address] [employer] Care Teams Airplane And Engine Inspector Relationship Specialty Start Date End Date Paulino Fofana MD [address] [place] [address] PCP - General Family Practice 08/07/18
[2024-11-25 18:27] LABS: Glucose Urine UA Negative (Normal); Nitrate Urine Negative (Negative)
[2024-11-25 18:31] LABS: HCG Qualitative Urine. Negative (Negative)
[2024-11-25 18:32] LABS: Add Urine Microscopic? YES
[2024-11-25 18:34] VITALS: BP 149/46; PULSE 65; O2SAT 97
[2024-11-25 18:34] LABS: PCP Screen Urine Negative (Negative)
[2024-11-25 18:48] LABS: Specific Gravity, Urine 1.033 (1.005-1.030); UA Slide Review UA Slide Review Perf
[2024-11-25 19:05] VITALS: BP 131/52; PULSE 33; O2SAT 98
== END 2024-11-25 19:32 | disposition short-term general hospital (02) ==
PROVIDERS: Physician Assistant; Emergency Provider Emergency Medicine
DX: I45.9 Conduction disorder, unspecified (principal); I10 Essential (primary) hypertension
CPT/HCPCS: 36415; 80053; 80306; 81001; 81025; 83605; 83735; 83880; 84443; 84484; 85025; 87040; 93005; 99285